=== PATIENT | male | born 1975 | race Caucasian/White ===

== ENCOUNTER 2019-09-25 14:27 | Emergency (ER) | payer BC, OTHER ==
[2019-09-25] MEDS ORDERED: EPINEPHrine 1 MG/1 ML Amp SUBCUT ONE (14:40)
[2019-09-25] MEDS ORDERED: diphenhydrAMINE 50 MG/ML SDV IVPUSH ONE (14:40)
[2019-09-25] MEDS ORDERED: Famotidine 20 MG/2 ML SDV IVPUSH ONE (14:47)
--- NOTE | 2019-09-25 14:48 | EDM.PDOC ---
ED HPI GENERAL MEDICAL PROBLEM - General Stated Complaint: POSS ALLERGIC REACTION Time Seen by Provider: 09/25/19 14:37 Source of Information: Reports: Patient History Limitations: Reports: No Limitations - History of Present Illness INITIAL COMMENTS - FREE TEXT/NARRATIVE: Patient does have a lot of allergies. He was recently put on doxycycline because of a possible ear infection. He also has had reaction to a cortical steroid. Therefore we did give him Benadryl today 50 mg IV as well as Pepcid 20 mg IV as well as subcutaneous epi. I could not give him any steroids because of his previous reactions. He will have to discuss with his primary physician about which antibiotics he can take for his ailments. He was having some tightness within the throat and change in his voice. 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: Reports: Other (see below) (Benadryl 25 mg PO) - Related Data Allergies Allergy/AdvReac Type Severity Reaction Status Date / Time amoxicillin [From Augmentin] Allergy Diarrhea Verified 09/25/19 14:51 clavulanic acid Allergy Diarrhea Verified 09/25/19 14:51 [From Augmentin] clindamycin Allergy Chest Verified 09/25/19 14:52 Tightness doxycycline Allergy Airway Verified 09/25/19 14:52 Tightness fluticasone propionate Allergy Difficulty Verified 04/16/14 21:54 [From Flovent Diskus] Breathing Sulfa (Sulfonamide Allergy Rash Verified 04/16/14 21:53 Antibiotics) Home Meds: Home Meds Benazepril [Lotensin] 20 mg PO DAILY 04/16/14 [History] Fish Oil/[place]-3 Fatty Acids [Fish Oil] 1 each PO DAILY 04/16/14 [History] Multivitamin [Multivitamins] 1 each PO DAILY 04/16/14 [History] Pantoprazole [Protonix] 40 mg PO DAILY 04/16/14 [History] Albuterol Sulfate 2 puff INH Q4H PRN 09/25/19 [History] Past Medical History Respiratory History: Reports: Asthma Social & Family History - Tobacco Use Smoking Status *Q: Never Smoker ED ROS ALLERGIC REACTION - Review of Systems Review Of Systems: Comprehensive ROS is negative, except as noted in HPI. ED EXAM GENERAL NO PERIP PULSE - Physical Exam Exam: See Below Exam Limited By: No Limitations General Appearance: Alert, Moderate Distress, Severe Distress Ears: Normal External Exam Nose: Normal Inspection Throat/Mouth: Normal Inspection Head: Atraumatic, Normocephalic. No: Facial Swelling Neck: Normal Inspection, Non-Tender, Full Range of Motion Respiratory/Chest: No Respiratory Distress, Wheezing, Other (Tightness is appreciated) Cardiovascular: Normal Peripheral Pulses, Regular Rate, Rhythm GI/Abdominal: Normal Bowel Sounds, Soft Course - Orders/Labs/Meds Meds: Medications Discontinued Medications Generic Name Dose Route Start Last Admin Trade Name Freq PRN Reason Stop Dose Admin Diphenhydramine HCl 50 mg 09/25/19 14:40 Benadryl IVPUSH 09/25/19 14:41 ONETIME ONE Epinephrine HCl 0.3 mg 09/25/19 14:40 Adrenalin SUBCUT 09/25/19 14:41 ONETIME ONE Famotidine 20 mg 09/25/19 14:47 Pepcid IVPUSH 09/25/19 14:48 ONETIME ONE Departure - Departure Time of Disposition: 15:16 Disposition: Home, Self-Care 01 Condition: Good Clinical Impression: Allergic reaction caused by a drug Qualifiers: Encounter type: initial encounter Qualified Code(s): T78.40XA - Allergy, unspecified, initial encounter - Discharge Information *PRESCRIPTION DRUG MONITORING PROGRAM REVIEWED*: Not Applicable *COPY OF PRESCRIPTION DRUG MONITORING REPORT IN PATIENT DOLORES: Not Applicable Referrals: Ami George, [employer] [Primary Care Provider] - Additional Instructions: Return if symptoms worsen. Epi and benadryl was given. Continue taking benadryl 50 mg every 8 hours for allergic reaction. Discuss with your primary in regards to other medication options. Sepsis Event Note - Focused Exam Date Exam was Performed: 09/25/19 Time Exam was Performed: 15:07
== END 2019-09-25 15:38 | disposition home or self-care (01) ==
LOC: VM.ED 14:27
DX: R49.9 Unspecified voice and resonance disorder (principal); T36.4X5A Adverse effect of tetracyclines, initial encounter; J45.909 Unspecified asthma, uncomplicated; Z88.1 Allergy status to other antibiotic agents; Z88.8 Allergy status to other drugs, medicaments and biological substances; Z88.2 Allergy status to sulfonamides; Z79.899 Other long term (current) drug therapy
CPT/HCPCS: 96372; 96374; 96375; 99283; J0171; J1200; J3490